=== PATIENT | female | born 1990 | race Caucasian/White ===

== ENCOUNTER → 2017-01-31 | Day surgery (SDC) | payer OTHER ==
[~2017-01-31] MED LIST: ALYACEN 1-35-21 EACH PO; SYNTHROID175 MCG PO; TIZANIDINE HCL4 M1 PO
== END | disposition home or self-care (01) ==
LOC: OR 07:18
PROVIDERS: Internal Medicine Gastroenterology
PROC: 0DBB8ZX Excision of Ileum, Via Natural or Artificial Opening Endoscopic, Diagnostic (ICD-10-PCS; 2017-01-31)
PROC: 0DBE8ZX Excision of Large Intestine, Via Natural or Artificial Opening Endoscopic, Diagnostic (ICD-10-PCS; 2017-01-31)
PROC: 0DB98ZX Excision of Duodenum, Via Natural or Artificial Opening Endoscopic, Diagnostic (ICD-10-PCS; principal; 2017-01-31 12:30)
PROC: 0DB68ZX Excision of Stomach, Via Natural or Artificial Opening Endoscopic, Diagnostic (ICD-10-PCS; 2017-01-31 12:30)
DX: K21.0 Gastro-esophageal reflux disease with esophagitis (principal); K29.80 Duodenitis without bleeding; K29.50 Unspecified chronic gastritis without bleeding; K64.4 Residual hemorrhoidal skin tags; K62.5 Hemorrhage of anus and rectum; Z88.0 Allergy status to penicillin; Z88.1 Allergy status to other antibiotic agents; E03.9 Hypothyroidism, unspecified; I34.1 Nonrheumatic mitral (valve) prolapse; Z79.899 Other long term (current) drug therapy; Z90.49 Acquired absence of other specified parts of digestive tract
CPT/HCPCS: 36415; 84703; J2405; J7030

== ENCOUNTER 2021-08-27 12:42 | Emergency (ER) | payer OTHER ==
[~2021-08-27 12:42] MED LIST changes: +VISTARIL25 MG PO
== END 2021-08-27 15:53 | disposition home or self-care (01) ==
LOC: ER1 12:42
DX: F41.9 Anxiety disorder, unspecified (principal); R10.813 Right lower quadrant abdominal tenderness; R10.814 Left lower quadrant abdominal tenderness; Z90.49 Acquired absence of other specified parts of digestive tract; Z88.0 Allergy status to penicillin; Z88.1 Allergy status to other antibiotic agents
CPT/HCPCS: 71046; 93005; 99283